=== PATIENT | male | born 1940 ===

== ENCOUNTER 2017-10-20 09:47 | Emergency (ER) | payer MEDICARE, OTHER ==
[2017-10-20 09:51] VITALS: BP 141/81
[2017-10-20] MEDS ORDERED: ATR80PT PO (09:59)
[2017-10-20] MEDS ORDERED: ENAL20TA99 PO (09:59)
[2017-10-20] MEDS ORDERED: ASPI-757 PO (09:59)
[2017-10-20] MEDS ORDERED: METO25TA93 PO (09:59)
[2017-10-20] MEDS ORDERED: DIPHTH/TETANUS/ACEL. PERTUSSIS IM ONLY ONE (10:10)
--- NOTE | 2017-10-20 10:36 | RADIOLOGY IMAGING REPORT ---
FACILITY: [facility] - [place] PATIENT NAME: Alexi Main : 1940 MR: [id number] V: [id number] EXAM DATE: ORDERING PHYSICIAN: MARIA FERNANDA MARTINEZ TECHNOLOGIST: Location: [facility] - [place] Patient: Alexi Main : 1940 Visit/Account:[id number] Date of Sevice: 10/20/2017 EXAMINATION: CT head without IV contrast HISTORY: Trauma. Forehead laceration, hit in face by garage door spring. COMPARISON: None. TECHNIQUE: Contiguous axial images were obtained from the skull base to the vertex without intraven ous contrast. Sagittal and coronal reformatted images are also submitted. One of the following dose optimization techniques was utilized in the performance of this exam: Autom ated exposure control; adjustment of the mA and/or kV according to the patient's size; or use of an i terative reconstruction technique. Specific details can be referenced in the facility's radiology C T exam operational policy. FINDINGS: Brain volume: Mild generalized atrophy with associated concordant prominence of the ventricular syst em. Ventricles: Normal. Acute ischemic changes: None. Hemorrhage: No acute intracranial hemorrhage. Masses/edema: None. Rivera-white: Negative. White matter: Normal. Vessels: Calcified plaque of both carotid siphons. Extra-axial: Negative. Calvarium/scalp: No acute fracture. Skull base/visualized face: Negative. Visualized sinuses/orbits: Mild mucosal thickening in the bilateral ethmoid air cells and maxillary sinuses. No air-fluid levels. Previous left lens surgery. IMPRESSION: No acute fracture, hemorrhage or intracranial mass lesion. No CT evidence of acute infarct. Report Dictated By: Merle Sales MD at 10/20/2017 10:27 AM Report E-Signed By: Merle Sales MD at 10/20/2017 10:31 AM WSN:[id number]
--- NOTE | 2017-10-20 10:49 | ER Report ---
History and Physical Time Seen By MD: 09:45 Hx. of Stated Complaint: PATIENT WAS WORKING ON HIS GARAGE DOOR AND WAS HIT IN THE HEAD BY A TOOL HPI/ROS CHIEF COMPLAINT: Laceration HISTORY OF PRESENT ILLNESS: 77-year-old male working on a garage door replacing a spring in the to attach the spring released out of his hand and struck his for a resulting in a 2 cm linear laceration no loss of consciousness no neck pain no additional complaints noted REVIEW OF SYSTEMS: Respiratory: No cough, no dyspnea. Cardiovascular: No chest pain, no palpitations. Gastrointestinal: No vomiting, no abdominal pain. Musculoskeletal: No back pain. Remainder of the 14 system rev: Yes Allergies: Coded Allergies: No Known Drug Allergies (Unverified , 10/20/17) Home Meds Reported Medications Metoprolol Tartrate (METOPROLOL TARTRATE) 25 Mg Tablet, 1 TAB PO BID, TAB 10/20/17 Atorvastatin (LIPITOR) 80 Mg Tab, 1 TAB PO QDAY, TAB 10/20/17 Enalapril Maleate (ENALAPRIL MALEATE) 20 Mg Tablet, 20 MG PO QDAY 10/20/17 Aspirin (ASPIRIN) 325 Mg Tablet, 325 MG PO QDAY, TAB 10/20/17 Reviewed Nurses Notes: Yes Old Medical Records Reviewed: Yes Hx Substance Use Disorder: No Hx Alcohol Use: Yes (SOCIAL) Constitutional Vital Sign - Last 24 Hours 10/20/17 09:51 Temp 98.2 Pulse 72 Resp 16 B/P (MAP) 141/81 Pulse Ox 93 O2 Delivery Room Air Physical Exam General Appearance: The patient is alert, has no immediate need for airway protection and no current signs of toxicity. [ ] Eyes: Pupils equal and round no injection. Respiratory: Chest is non tender, lungs are clear to auscultation. Cardiac: regular rate and rhythm [ ] Gastrointestinal: Abdomen is soft and non tender, no masses, bowel sounds normal. Musculoskeletal: Neck: Neck is supple and non tender. Extremities have full range of motion and are non tender. Skin: Admission for just 2 cm linear laceration with some slight maceration around the inferior edges otherwise unremarkable [ ] DIFFERENTIAL DIAGNOSIS: After history and physical exam differential diagnosis was considered for closed head injury laceration Medical Decision Making ED Course/Re-evaluation ED Course ED clinical course medical decision making patient struck his forehead is a laceration head CT was performed secondary to a complaint that he did not lose consciousness but did feel pretty dizzy afterwards he is elderly with an aspirin just to confirm and no intracranial mass need repletion lesion or bleed were present this was confirmed Laceration repair 1 his clinical procedure get a tetanus was updated patient had 2 interrupted mindy placed with good cosmesis he selected mindy over sutures will have those removed patient tolerated procedure well Laceration was closed with good cosmesis no dressing applied after wound was cleaned patient CT was negative OB diagnosed with a laceration and follow-up with primary care for suture or staple removal Decision to Disposition Date: October 20, 2017 Decision to Disposition Time: 10:48 Depart Departure Latest Vital Signs Vital Signs Date Time Temp Pulse Resp B/P (MAP) Pulse Ox O2 Delivery O2 Flow Rate FiO2 10/20/17 09:51 98.2 72 16 141/81 93 Room Air Impression: Primary Impression: Laceration Condition: Improved Disposition: HOME OR SELF-CARE Referrals: HANNAH WILSON MD 5 Days Patient Instructions: Facial Laceration (ED) MARIA FERNANDA MARTINEZ MD October 20, 2017 10:49
== END 2017-10-20 10:58 | disposition home or self-care (01) ==
LOC: ER 10:04
DX: S01.01XA Laceration without foreign body of scalp, initial encounter (principal); W20.8XXA Other cause of strike by thrown, projected or falling object, initial encounter
CPT/HCPCS: 70450; 90471; 90715; 99283